=== PATIENT | female | born 1955 | race Caucasian/White ===

== ENCOUNTER 2016-07-08 10:40 | Outpatient (CLI) | payer OTHER ==
--- NOTE | 2016-07-08 11:31 | DIAGNOSTIC IMAGING REPORT ---
PROCEDURE: XR CHEST 2 VIEW INDICATION: CHRONIC COUGH TECHNIQUE: PA and lateral views. COMPARISON: None. FINDINGS: Lungs are clear. Heart and mediastinum are normal. Thorax is normal. Deep brain stimulator's are projected over the chest. There is a fat pad at the left cardiophrenic angle. IMPRESSION: 1. Negative chest.
== END 2016-07-08 23:00 ==
LOC: XR SRH 10:40
DX: R05 Cough (principal)

== ENCOUNTER 2016-07-09 14:09 | Emergency (ER) | payer OTHER ==
--- NOTE | 2016-07-09 15:05 | ED ORDER SUMMARY ---
..... Patient: RSI CORRALES OrderSheet [facility] VisitID: [id number] [address] [place] [address] 60y, F Registration Date/Time: 07/09/2016 ORDER SHEET Weight: 121.1 kg Allergies: Codeine, Dilaudid, Risperdal GENERAL ORDERS: Culture, Strep Screen Urgent (14:44 07/09/2016 HBivens A.R.N.P.) ([facility] 14:48 LNations ER Tech1) MEDICATION ORDERS: IV FLUIDS: ORDER SHEET NOTES: [Electronically signed by Jill Zeng (15:19 07/09/2016)] [Electronically signed by Ruth Holman A.R.N.P. (15:38 07/09/2016)] [Electronically locked/signed by Jill Zeng (15:19 07/09/2016)]
--- NOTE | 2016-07-09 15:05 | ED NURSING NOTES ---
Clinical Report - Nurses [facility] [address] [place] [address] 07/09/2016 14:10 Patient: SRI CORRALES TRIAGE Triage time 1430. Acuity: LEVEL 4. Chief Complaint: COUGH and SORE THROAT. Alert. No acute distress. --14:42 Jill Zeng 14:34 07/09/16. BP: 137/106. HR: 108. RR: 24. O2 saturation: 96%. Temp: 98.9 F. Pain level now 10/02. --14:42 Jill Zeng. Weight: 121.1 kg. Height/Length: 68 inches. BMI: 40.6. --14:33 Jill Zeng. Medications Albuterol Sulfate Oral. Budesonide-Formoterol Fumarate Inhalation. BuPROPion HCl ER (SR) Oral (Tablet Extended Release 12 Hour 200 mg). Divalproex Sodium Oral (Tablet Delayed Release 500 mg). Docusate Sodium Oral (Capsule 100 mg). HydrOXYzine HCl Oral 150mg. Levothyroxine Sodium Oral 175 mcg. Pantoprazole Sodium Oral (Tablet Delayed Release 20 mg). Primidone Oral 50 mg. Propranolol HCl Oral (Tablet 20 mg) 120 mg. Spiriva HandiHaler Inhalation (Capsule 18 mcg) 1 capsule. Venlafaxine HCl ER Oral (Tablet Extended Release 24 Hour 75 mg). Vitamin D Oral 50,000 units. Zetia Oral (Tablet 10 mg). Ziprasidone HCl Oral (Capsule 80 mg) 1 capsule, q maria a. --14:41 Jill Zeng. Allergies Codeine. Dilaudid. Risperdal. --14:41 Jill Zeng. History Arrived by private vehicle. Historian: patient. Unaccompanied. Onset. (4 days ago). ( Saw PCP, had chest x ray yesterday, PCP called to say there was nothing else to do and go to ER, pt requesting strep screen). 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 SOCIAL HX: Heavy tobacco smoker (cigarette)- less than 1 pack per day. --14:42 Jill Zeng. PROBLEMS: Lower Extremity Pain. Colitis. Bipolar Disorder. Arthritis. Fibromyalgia. Tremor. DBS. --14:41 Jill Zeng. ADDITIONAL SURGERIES: Ankle. Hysterectomy. Tonsillectomy. --14:41 Jill Zeng. Interventions ID band on patient. To treatment room. --14:42 Jill Zeng. PHYSICAL ASSESSMENT Ambulatory to room. GENERAL / NEURO / PSYCH: Alert. Oriented X 4. Appears in no acute distress. HEENT: Pupils equal, round and reactive to light. Mouth within normal limits upon inspection. Voice within normal limits. Mucous membranes are pink. RESPIRATORY: Respirations not labored. Cough (subjective). CVS: Normal sinus rhythm noted. Capillary refill less than 2 seconds. SKIN: Skin is warm and dry. --14:43 Jill Zeng. NURSING PROGRESS NOTES Call light placed in reach. Bed placed in lowest position. Brakes of bed on. Patient ready for evaluation- chart flagged. --14:44 Jill Zeng. DISPOSITION / DISCHARGE Departure time: 1410. Condition at departure: unchanged and stable. No learning barriers present. Discharge instructions provided and reviewed with the patient. Reviewed medication(s). Patient verbalized understanding. Written instructions provided in Thai. The patient was discharged by the nurse practitioner. She was discharged home and unaccompanied at time of discharge. She left the Emergency Department ambulatory and via private vehicle. Patient driving. --15:19 Jill Zeng. Locked/Released at 07/09/2016 15:19 by Jill Zeng,
--- NOTE | 2016-07-09 15:05 | ED NURSING NOTES ---
Clinical Report - Nurses [facility] [address] [place] [address] 07/09/2016 14:10 Patient: SRI CORRALES TRIAGE Triage time 1430. Acuity: LEVEL 4. Chief Complaint: COUGH and SORE THROAT. Alert. No acute distress. --14:42 Jill Zeng 14:34 07/09/16. BP: 137/106. HR: 108. RR: 24. O2 saturation: 96%. Temp: 98.9 F. Pain level now 10/02. --14:42 Jill Zeng. Weight: 121.1 kg. Height/Length: 68 inches. BMI: 40.6. --14:33 Jill Zeng. Medications Albuterol Sulfate Oral. Budesonide-Formoterol Fumarate Inhalation. BuPROPion HCl ER (SR) Oral (Tablet Extended Release 12 Hour 200 mg). Divalproex Sodium Oral (Tablet Delayed Release 500 mg). Docusate Sodium Oral (Capsule 100 mg). HydrOXYzine HCl Oral 150mg. Levothyroxine Sodium Oral 175 mcg. Pantoprazole Sodium Oral (Tablet Delayed Release 20 mg). Primidone Oral 50 mg. Propranolol HCl Oral (Tablet 20 mg) 120 mg. Spiriva HandiHaler Inhalation (Capsule 18 mcg) 1 capsule. Venlafaxine HCl ER Oral (Tablet Extended Release 24 Hour 75 mg). Vitamin D Oral 50,000 units. Zetia Oral (Tablet 10 mg). Ziprasidone HCl Oral (Capsule 80 mg) 1 capsule, q maria a. --14:41 Jill Zeng. Allergies Codeine. Dilaudid. Risperdal. --14:41 Jill Zeng. History Arrived by private vehicle. Historian: patient. Unaccompanied. Onset. (4 days ago). ( Saw PCP, had chest x ray yesterday, PCP called to say there was nothing else to do and go to ER, pt requesting strep screen). 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 SOCIAL HX: Heavy tobacco smoker (cigarette)- less than 1 pack per day. --14:42 Jill Zeng. PROBLEMS: Lower Extremity Pain. Colitis. Bipolar Disorder. Arthritis. Fibromyalgia. Tremor. DBS. --14:41 Jill Zeng. ADDITIONAL SURGERIES: Ankle. Hysterectomy. Tonsillectomy. --14:41 Jill Zeng. Interventions ID band on patient. To treatment room. --14:42 Jill Zeng. PHYSICAL ASSESSMENT Ambulatory to room. GENERAL / NEURO / PSYCH: Alert. Oriented X 4. Appears in no acute distress. HEENT: Pupils equal, round and reactive to light. Mouth within normal limits upon inspection. Voice within normal limits. Mucous membranes are pink. RESPIRATORY: Respirations not labored. Cough (subjective). CVS: Normal sinus rhythm noted. Capillary refill less than 2 seconds. SKIN: Skin is warm and dry. --14:43 Jill Zeng. NURSING PROGRESS NOTES Call light placed in reach. Bed placed in lowest position. Brakes of bed on. Patient ready for evaluation- chart flagged. --14:44 Jill Zeng. DISPOSITION / DISCHARGE Departure time: 1410. Condition at departure: unchanged and stable. No learning barriers present. Discharge instructions provided and reviewed with the patient. Reviewed medication(s). Patient verbalized understanding. Written instructions provided in Tuvaluan. The patient was discharged by the nurse practitioner. She was discharged home and unaccompanied at time of discharge. She left the Emergency Department ambulatory and via private vehicle. Patient driving. --15:19 Jill Zeng. Locked/Released at 07/09/2016 15:19 by Jill Zeng,
--- NOTE | 2016-07-09 15:05 | ED CLINICAL REPORT ---
Clinical Report - Physicians/Mid Levels [facility] [address] [place] [address] 07/09/2016 14:10 Patient: SRI CORRALES Time Seen: 14:31; initial patient contact, initial documentation, patient care assumed. Arrived- By private vehicle. Historian- patient. HISTORY OF PRESENT ILLNESS Chief Complaint: COUGH. This started about 35 days ago and is still present. The illness is described as moderate. The patient has had a cough, a sore throat, nasal congestion and a nasal discharge. She has had moderate amounts of thick, yellow, blood tinged sputum. No difficulty breathing, chest discomfort or pain, fever or muscle aches. No sinus pressure, sinus drainage or ear pain. Additional history - No known contact with a sick individual. No recent travel. Similar symptoms previously: Recent medical care: The patient was seen recently in the office. ( went to yesterday, chest xray done, says it was normal, given inhalers and abx, still coughing so came here, nothing for cough taken and wants strep screen). REVIEW OF SYSTEMS No vomiting or diarrhea. All systems otherwise negative, except as recorded above. PAST HISTORY See nurses notes. PROBLEMS: Lower Extremity Pain. Colitis. Bipolar Disorder. Arthritis. Fibromyalgia. Tremor. DBS. --14:41 Jill Zeng. ADDITIONAL SURGERIES: Ankle. Hysterectomy. Tonsillectomy. --14:41 Jill Zeng. SOCIAL HISTORY Heavy tobacco smoker. Not exposed to second-hand smoke at home. No alcohol use or drug use. No recent travel. Is a local resident. FAMILY HISTORY Negative. ADDITIONAL NOTES The nursing notes have been reviewed with agreement regarding the chief complaint, HPI, ROS, PMH and patient medications and allergies. PHYSICAL EXAM Vital Signs: 07/09/2016 14:34 BP: 137/106. HR: 108. RR: 24. O2 saturation: 96%. Temp: 98.9 F. Have been reviewed as abnormal and appear to be correct. Hypertensive. Tachycardic. Respiratory rate normal. Temperature normal. Oxygen saturation normal. Appearance: Alert. No acute distress. Eyes: Pupils equal, round and reactive to light. Eyes normal inspection. ENT: Ears normal. Nose normal. Pharynx normal. Uvula midline. Neck: Normal inspection. Neck supple. CVS: Normal heart rate and rhythm. Heart sounds normal. Pulses normal. Respiratory: No respiratory distress. Breath sounds normal. Abdomen: Soft and nontender. No organomegaly. Mildly obese. Back: Normal inspection. Skin: Skin warm and dry. Normal skin color. No rash. Normal skin turgor. Extremities: Extremities exhibit normal ROM. No lower extremity edema. Neuro: Oriented X 3. No motor deficit. No sensory deficit. LABS, X-RAYS, AND EKG Laboratory Tests: Culture, Strep Screen: (GABRIEL: 07/09/2016 15:10) ( MsgRcvd 07/09/2016 15:26) Final results Test Result Flag Units (Reference) RAPID STREP SCREEN - THROAT DATE: 07/09/16 NEGATIVE SCREEN: RAPID STREP SCREEN NEGATIVE; CONFIRMATION TO FOLLOW . PROGRESS AND PROCEDURES Patient counseled in person regarding the patient's stable condition and diagnosis. Differential Diagnosis: Other possible considerations: uri, viral illness, bronchitis, pneumonia, copd, asthma, emphysema. Above considerations are based on history and physical exam. Differential diagnosis was discussed with patient. Disposition: Discharged home in good and unchanged condition (15:05). Condition: good and stable. CLINICAL IMPRESSION Recurrent rhinitis. No airway obstruction. INSTRUCTIONS (continue with all medications as previously directed and discussed). Warnings: GENERAL WARNINGS: Return or contact your physician immediately if your condition worsens or changes unexpectedly, if not improving as expected, or if other problems arise. Specifically return if problem worsens. OTC Medications: Mucinex DM: (available over the counter) take according to label instructions. Follow-up: Follow up with your doctor in about five days even if well. Call for an appointment. Summary of care provided to patient. Understanding of the discharge instructions verbalized by patient. (Electronically signed by Ruth Holman A.R.N.P. 07/09/2016 15:38)
--- NOTE | 2016-07-09 15:05 | ED ORDER SUMMARY ---
..... Patient: SRI CORRALES OrderSheet [facility] VisitID: [id number] [address] [place] [address] 60y, F Registration Date/Time: 07/09/2016 ORDER SHEET Weight: 121.1 kg Allergies: Codeine, Dilaudid, Risperdal GENERAL ORDERS: Culture, Strep Screen Urgent (14:44 07/09/2016 HBivens A.R.N.P.) ([facility] 14:48 LNations ER Tech1) MEDICATION ORDERS: IV FLUIDS: ORDER SHEET NOTES: [Electronically signed by Jill Zeng (15:19 07/09/2016)] [Electronically signed by Ruth Holman A.R.N.P. (15:38 07/09/2016)] [Electronically locked/signed by Jill Zeng (15:19 07/09/2016)]
--- NOTE | 2016-07-09 15:38 | ED DISCHARGE INSTRUCTIONS ---
Patient: SRI CORRALES General Instructions [facility] VisitID: [id number] [address] [place] [address] 60y, F Registration Date/Time: 07/09/2016 Recurrent rhinitis. No airway obstruction. INSTRUCTIONS (continue with all medications as previously directed and discussed). Warnings: GENERAL WARNINGS: Return or contact your physician immediately if your condition worsens or changes unexpectedly, if not improving as expected, or if other problems arise. Specifically return if problem worsens. OTC Medications: Mucinex DM: (available over the counter) take according to label instructions. Follow-up: Follow up with your doctor in about five days even if well. Call for an appointment. Summary of care provided to patient. Understanding of the discharge instructions verbalized by patient. ADDITIONAL INFORMATION Viral Respiratory Illness [Adult] You have an Upper Respiratory Illness (URI) caused by a virus. This illness is contagious during the first few days. It is spread through the air by coughing and sneezing or by direct contact (touching the sick person and then touching your own eyes, nose or mouth). Most viral illnesses go away within 7-10 days with rest and simple home remedies. Sometimes, the illness may last for several weeks. Antibiotics will not kill a virus and are generally not prescribed for this condition. Home Care: 1) If symptoms are severe, rest at home for the first 2-3 days. When you resume activity, don't let yourself get too tired. 2) Avoid being exposed to cigarette smoke (yours or others). 3) Tylenol (acetaminophen) or ibuprofen (Advil, Motrin) will help fever, muscle aching and headache. (Persons under 18 with fever should not take aspirin since this may cause liver damage.) 4) Your appetite may be poor, so a light diet is fine. Avoid dehydration by drinking 6-8 glasses of fluids per day (water, soft drinks, juices, tea, soup). Extra fluids will help loosen secretions in the nose and lungs. 5) [id number] cold medicines will not shorten the length of time youre sick, but they may be helpful for the following symptoms: cough (Robitussin DM); sore throat (Chloraseptic lozenges or spray); nasal and sinus congestion (Actifed, Sudafed, Chlortrimeton). Follow Up with your doctor or as advised if you dont improve over the next week. Get Prompt Medical Attention if any of the following occur: -- Cough with lots of colored sputum (mucus) or blood in your sputum -- Chest pain, shortness of breath, wheezing or have trouble breathing -- Severe headache; face, neck or ear pain -- Fever over 100.4 F (38.0 C) for more than three days -- You cant swallow due to throat pain Guaifenesin Oral syrup What is this medicine? GUAIFENESIN (gwye FEN e sin) is an expectorant. It helps to thin mucous and make coughs more productive. This medicine is used to treat coughs caused by colds or the flu. It is not intended to treat chronic cough caused by smoking, asthma, emphysema, or heart failure. How should I use this medicine? Take this medicine by mouth. Follow the directions on the prescription label. Use a specially marked spoon or container to measure your dose. Household spoons are not accurate. Take your medicine at regular intervals. Do not take it more often than directed. Talk to your male model regarding the use of this medicine in children. Special care may be needed. What side effects may I notice from receiving this medicine? Side effects that you should report to your doctor or health career services coordinator as soon as possible: allergic reactions like skin rash, itching or hives, swelling of the face, lips, or tongue Side effects that usually do not require medical attention (report to your doctor or health career services coordinator if they continue or are bothersome): dizziness headache stomach upset What may interact with this medicine? Interactions are not expected. What if I miss a dose? If you miss a dose, take it as soon as you can. If it is almost time for your next dose, take only that dose. Do not take double or extra doses. Where should I keep my medicine? Keep out of the reach of children. Store at room temperature between 20 and 25 degrees C (68 and 77 degrees F). Do not freeze. Keep container tightly closed. Throw away any unused medicine after the expiration date. What should I tell my health care provider before I take this medicine? They need to know if you have any of these conditions: diabetes fever kidney disease an unusual or allergic reaction to guaifenesin, other medicines, foods, dyes, or preservatives or trying to get breast-feeding What should I watch for while using this medicine? Do not treat a cough for more than 1 week without consulting your doctor or health career services coordinator. If you also have a high fever, skin rash, continuing headache, or sore throat, see your doctor. For best results, drink 6 to 8 glasses water daily while you are taking this medicine. You have been given the following additional information: Uri, Viral, No Abx (Adult) Guaifenesin Oral syrup (Electronically signed by Ruth Holman A.R.N.P. 07/09/2016 15:38)
--- NOTE | 2016-07-09 15:38 | ED MED RECONCILIATION SUMMARY ---
Patient: SRI CORRALES Medication Reconciliation Report [facility] VisitID: [id number] [address] [place] [address] 60y, F Registration Date/Time: 07/09/2016 Weight: 121.1 kg Height/Length: 68 in. BMI: 40.6 ALLERGIES: Codeine, Dilaudid, Risperdal The patient's Home Medications are listed below: THE FOLLOWING MEDICATIONS NEED TO BE RECONCILED: Albuterol Sulfate Oral Budesonide-Formoterol Fumarate Inhalation BuPROPion HCl ER (SR) Oral (200 mg) Divalproex Sodium Oral (500 mg) Docusate Sodium Oral (100 mg) HydrOXYzine HCl Oral 150mg Levothyroxine Sodium Oral 175 mcg Pantoprazole Sodium Oral (20 mg) Primidone Oral 50 mg Propranolol HCl Oral (20 mg) 120 mg Spiriva HandiHaler Inhalation (18 mcg) 1 capsule Venlafaxine HCl ER Oral (75 mg) Vitamin D Oral 50,000 units Zetia Oral (10 mg) Ziprasidone HCl Oral (80 mg) 1 capsule, q maria a The source(s) of the original Home Medication information: Not obtained. The following Medications were given to the patient in the Emergency Department: None. The following Medications were prescribed to the patient: Mucinex DM: (available over the counter) take according to label instructions. -- Ruth Holman A.R.N.P.
--- NOTE | 2016-07-09 15:38 | ED MAR SUMMARY ---
..... Medication Administration Record [facility] [address], [place] [id number] Patient: SRI CORRALES Visit ID: [id number] 60y, F Weight: 121.1 kg Height/Length: 68 in BMI: 40.6 ALLERGIES: Codeine, Dilaudid, Risperdal
--- NOTE | 2016-07-09 15:38 | ED DISCHARGE INSTRUCTIONS ---
Patient: SRI CORRALES General Instructions [facility] VisitID: [id number] [address] [place] [address] 60y, F Registration Date/Time: 07/09/2016 Recurrent rhinitis. No airway obstruction. INSTRUCTIONS (continue with all medications as previously directed and discussed). Warnings: GENERAL WARNINGS: Return or contact your physician immediately if your condition worsens or changes unexpectedly, if not improving as expected, or if other problems arise. Specifically return if problem worsens. OTC Medications: Mucinex DM: (available over the counter) take according to label instructions. Follow-up: Follow up with your doctor in about five days even if well. Call for an appointment. Summary of care provided to patient. Understanding of the discharge instructions verbalized by patient. ADDITIONAL INFORMATION Viral Respiratory Illness [Adult] You have an Upper Respiratory Illness (URI) caused by a virus. This illness is contagious during the first few days. It is spread through the air by coughing and sneezing or by direct contact (touching the sick person and then touching your own eyes, nose or mouth). Most viral illnesses go away within 7-10 days with rest and simple home remedies. Sometimes, the illness may last for several weeks. Antibiotics will not kill a virus and are generally not prescribed for this condition. Home Care: 1) If symptoms are severe, rest at home for the first 2-3 days. When you resume activity, don't let yourself get too tired. 2) Avoid being exposed to cigarette smoke (yours or others). 3) Tylenol (acetaminophen) or ibuprofen (Advil, Motrin) will help fever, muscle aching and headache. (Persons under 18 with fever should not take aspirin since this may cause liver damage.) 4) Your appetite may be poor, so a light diet is fine. Avoid dehydration by drinking 6-8 glasses of fluids per day (water, soft drinks, juices, tea, soup). Extra fluids will help loosen secretions in the nose and lungs. 5) [id number] cold medicines will not shorten the length of time youre sick, but they may be helpful for the following symptoms: cough (Robitussin DM); sore throat (Chloraseptic lozenges or spray); nasal and sinus congestion (Actifed, Sudafed, Chlortrimeton). Follow Up with your doctor or as advised if you dont improve over the next week. Get Prompt Medical Attention if any of the following occur: -- Cough with lots of colored sputum (mucus) or blood in your sputum -- Chest pain, shortness of breath, wheezing or have trouble breathing -- Severe headache; face, neck or ear pain -- Fever over 100.4 F (38.0 C) for more than three days -- You cant swallow due to throat pain Guaifenesin Oral syrup What is this medicine? GUAIFENESIN (gwye FEN e sin) is an expectorant. It helps to thin mucous and make coughs more productive. This medicine is used to treat coughs caused by colds or the flu. It is not intended to treat chronic cough caused by smoking, asthma, emphysema, or heart failure. How should I use this medicine? Take this medicine by mouth. Follow the directions on the prescription label. Use a specially marked spoon or container to measure your dose. Household spoons are not accurate. Take your medicine at regular intervals. Do not take it more often than directed. Talk to your financial services agent regarding the use of this medicine in children. Special care may be needed. What side effects may I notice from receiving this medicine? Side effects that you should report to your doctor or health team primary care physician as soon as possible: allergic reactions like skin rash, itching or hives, swelling of the face, lips, or tongue Side effects that usually do not require medical attention (report to your doctor or health team primary care physician if they continue or are bothersome): dizziness headache stomach upset What may interact with this medicine? Interactions are not expected. What if I miss a dose? If you miss a dose, take it as soon as you can. If it is almost time for your next dose, take only that dose. Do not take double or extra doses. Where should I keep my medicine? Keep out of the reach of children. Store at room temperature between 20 and 25 degrees C (68 and 77 degrees F). Do not freeze. Keep container tightly closed. Throw away any unused medicine after the expiration date. What should I tell my health care provider before I take this medicine? They need to know if you have any of these conditions: diabetes fever kidney disease an unusual or allergic reaction to guaifenesin, other medicines, foods, dyes, or preservatives or trying to get breast-feeding What should I watch for while using this medicine? Do not treat a cough for more than 1 week without consulting your doctor or health team primary care physician. If you also have a high fever, skin rash, continuing headache, or sore throat, see your doctor. For best results, drink 6 to 8 glasses water daily while you are taking this medicine. You have been given the following additional information: Uri, Viral, No Abx (Adult) Guaifenesin Oral syrup (Electronically signed by Ruth Holman A.R.N.P. 07/09/2016 15:38)
--- NOTE | 2016-07-09 15:38 | ED MED RECONCILIATION SUMMARY ---
Patient: SRI CORRALES Medication Reconciliation Report [facility] VisitID: [id number] [address] [place] [address] 60y, F Registration Date/Time: 07/09/2016 Weight: 121.1 kg Height/Length: 68 in. BMI: 40.6 ALLERGIES: Codeine, Dilaudid, Risperdal The patient's Home Medications are listed below: THE FOLLOWING MEDICATIONS NEED TO BE RECONCILED: Albuterol Sulfate Oral Budesonide-Formoterol Fumarate Inhalation BuPROPion HCl ER (SR) Oral (200 mg) Divalproex Sodium Oral (500 mg) Docusate Sodium Oral (100 mg) HydrOXYzine HCl Oral 150mg Levothyroxine Sodium Oral 175 mcg Pantoprazole Sodium Oral (20 mg) Primidone Oral 50 mg Propranolol HCl Oral (20 mg) 120 mg Spiriva HandiHaler Inhalation (18 mcg) 1 capsule Venlafaxine HCl ER Oral (75 mg) Vitamin D Oral 50,000 units Zetia Oral (10 mg) Ziprasidone HCl Oral (80 mg) 1 capsule, q maria a The source(s) of the original Home Medication information: Not obtained. The following Medications were given to the patient in the Emergency Department: None. The following Medications were prescribed to the patient: Mucinex DM: (available over the counter) take according to label instructions. -- Ruth Holman A.R.N.P.
--- NOTE | 2016-07-09 15:38 | ED MAR SUMMARY ---
..... Medication Administration Record [facility] [address] [place] [id number] Patient: SRI CORRALES Visit ID: [id number] 60y, F Weight: 121.1 kg Height/Length: 68 in BMI: 40.6 ALLERGIES: Codeine, Dilaudid, Risperdal
== END 2016-07-09 15:10 | disposition home or self-care (01) ==
LOC: ED SRH 14:09
DX: J31.0 Chronic rhinitis (principal); Z90.710 Acquired absence of both cervix and uterus; Z88.5 Allergy status to narcotic agent; Z88.8 Allergy status to other drugs, medicaments and biological substances; Z79.899 Other long term (current) drug therapy; F17.210 Nicotine dependence, cigarettes, uncomplicated
CPT/HCPCS: 90154; 90159